=== PATIENT | male | born 1980 | race Caucasian/White ===

== ENCOUNTER 2021-05-29 15:21 | Emergency (ER) | payer SELFPAY ==
[~2021-05-29] VITALS: Ht 175.3 cm; Wt 82.3 kg
[2021-05-29 16:37] LABS: BILIRUBIN,URINE NEGATIVE (NEG); CLARITY,URINE CLEAR; COLOR,URINE DK YELLOW
[2021-05-29 16:38] LABS: NITRITE,URINE NEGATIVE (NEG); PROTEIN,URINE NEGATIVE (NEG-TRACE)
[2021-05-29 16:41] LABS: BACTERIA,URINE 0 /HPF (0-FEW); RBC,URINE 0 /HPF (0-2)
--- NOTE | 2021-05-29 17:12 | RAD ---
CT abdomen and pelvis without contrast: Reason for examination: Right flank pain. Helical images were obtained through the abdomen and pelvis with no intravenous or oral contrast admi nistered. Reconstruction was performed in sagittal and coronal planes. Exposure: One or more of the following individualized dose reduction techniques were utilized for thi s examination: 1. Automated exposure control 2. Adjustment of the mA and/or kV according to patient size 3. Use of iterative reconstruction technique. No infiltrates or pleural effusions are seen. The heart size is normal with no pericardial effusion. No abnormalities of seen at the liver, spleen, adrenal glands, gallbladder or pancreas. The kidneys s how no renal masses, calculi, hydronephrosis or evidence of obstructive uropathy. The abdominal aorta and inferior vena cava show no acute abnormalities. The colon appears to contain a moderate amount o f fecal material with no diverticulosis, diverticulitis or colitis. No abnormality is seen at the layla endix. The small intestinal tract shows no abnormal dilatation, wall thickening or apparent obstructi on. No abnormality is seen at the stomach or duodenum. No abnormality seen at the bladder, prostate gland or seminal vesicles. No free fluid or free air is seen in the abdomen or pelvis. No acute bony abnormalities are seen. IMPRESSION: No renal calculi or evidence of obstructive uropathy. No acute abnormality evident in the abdomen or pelvis. Electronically signed by: Jemima Lauren MD (05/29/2021 5:10 PM) SYMONE
[2021-05-29 17:22] LABS: BASO % 1 % (0-3); EOS # 0.2 x10^3/uL (0.0-0.7); EOS % 4 % (0-3); HEMATOCRIT 38.4 % (39.0-53.0); HEMOGLOBIN 13.3 g/dL (13.0-17.5); LYMPH # 1.9 x10^3/uL (1.0-4.8); LYMPH % 30 % (24-48); MEAN CORPUSCULAR HEMOGLOBIN 31 pg (25-35); MEAN CORPUSCULAR HGB CONC 35 g/dL (31-37); MEAN CORPUSCULAR VOLUME 90 fL (79-100); MONO # 0.3 x10^3/uL (0.0-1.1); MONO % 5 % (0-9); NEUT # 3.8 x10^3/uL (1.8-7.7); NEUT % 60 % (31-73); PLATELET COUNT 238 x10^3/uL (140-400); RED BLOOD COUNT 4.25 x10^6/uL (4.30-5.70); RED CELL DISTRIBUTION WIDTH 13.6 % (11.5-14.5); WHITE BLOOD COUNT 6.3 x10^3/uL (4.0-11.0)
[2021-05-29 17:29] LABS: CALCIUM 8.7 mg/dL (8.5-10.1); CREATININE 0.9 mg/dL (0.7-1.3); GFR 94.4; POTASSIUM 4.3 mmol/L (3.5-5.1)
[2021-05-29 17:35] LABS: ALBUMIN 3.7 g/dL (3.4-5.0); ALBUMIN/GLOBULIN RATIO 1.1 (1.0-1.7); TOTAL BILIRUBIN 0.2 mg/dL (0.2-1.0)
[2021-05-29] MEDS ORDERED: IV NORMAL SALINE 1000ML BAG 1,000 ML IV ONE (18:15)
[2021-05-29] MEDS ORDERED: ORPHENADRINE CITRATE 60 MG/2 ML VIAL. IM ONE (18:45)
[2021-05-29] MEDS ORDERED: KETOROLAC 15 MG/ML VIAL. IVP ONE (18:45)
[2021-05-29] MEDS ORDERED: NAPR-677 PO (19:52)
[2021-05-29] MEDS ORDERED: CYCL10TA2 PO (19:52)
--- NOTE | 2021-05-29 19:53 | ED.ADGEN ---
Past Medical History Additional Past Medical Histor: "kidney failure - per patient", narrow urethra Past Surgical History: Other Additional Past Surgical Histo: urethra General Adult EDM: Chief Complaint: FLANK PAIN HPI: HPI: Patient is a 40 year old male who presents to the emergency department via [facility] with complaints of right flank pain that radiates to his right lower quadrant that began this morning. Patient states about a week ago he had similar pain. He reports a history of previous kidney stones and a narrow urethra. Patient states in the past he has had kidney failure because of these problems. He denies any fever, nausea, vomiting, diarrhea, cough, shortness of breath, fever, body aches, headache, dysuria, hematuria, or difficulty voiding. Currently rates his pain a 7 out of 10 on the pain scale, he denies any alleviating factors. Patient denies any known exposure to COVID-19, he has not been immunized against the illness. Patient states that he has noticed that the back pain is worse with palpation and movement, he denies any radiation of the pain to his right leg. Review of Systems: Review of Systems: Complete ROS is negative unless otherwise noted in HPI. Current Medications: Current Medications Medications (Trade) Dose Ordered Sig/Diony Start Time Stop Time Status Last Admin Dose Admin Ketorolac Tromethamine (Toradol 15mg Vial) 15 mg 1X ONCE 05/29/21 18:45 05/29/21 18:46 DC 05/29/21 19:20 15 MG Orphenadrine Citrate (Norflex) 60 mg 1X ONCE 05/29/21 18:45 05/29/21 18:46 DC 05/29/21 19:19 60 MG Sodium Chloride 1,000 ml @ 1,000 mls/hr 1X ONCE 05/29/21 18:15 05/29/21 19:14 DC 05/29/21 18:25 1,000 MLS/HR Allergies: Allergies: Allergies Coded Allergies Type Severity Reaction Last Updated Verified No Known Drug Allergies 05/29/21 No Physical Exam: PE: See Above Constitutional: Well developed, well nourished, no acute distress, non-toxic appearance. [] HENT: Normocephalic, atraumatic, bilateral external ears normal, nose normal. [] Eyes: PERRLA, EOMI, conjunctiva normal, no discharge. [] Neck: Normal range of motion, no stridor. [] Cardiovascular:Heart rate regular rhythm Lungs & Thorax: Respirations even and unlabored, no retractions, no respiratory distress Abdomen: soft, no tenderness,, no palpable mass, no pulsatile mass Back: No bony tenderness, right lumbar paraspinal tenderness to palpation, negative straight leg lift bilaterally Skin: Warm, dry, no erythema, no rash. [] Extremities: No cyanosis, ROM intact, no edema. [] Neurologic: Alert and oriented X 3, normal motor, normal sensory, no focal deficits noted. [] Psychologic: Affect normal, judgement normal, mood normal. [] Current Patient Data: Labs: Laboratory Tests Test 05/29/21 15:42 05/29/21 17:15 Urine Collection Type Unknown Urine Color Dk yellow Urine Clarity Clear Urine pH 5.0 (<5.0-8.0) Urine Specific [place] >=1.030 (1.000-1.030) Urine Protein Negative mg/dL (NEG-TRACE) Urine Glucose (UA) Negative mg/dL (NEG) Urine Ketones (Stick) Negative mg/dL (NEG) Urine Blood Negative (NEG) Urine Nitrite Negative (NEG) Urine Bilirubin Negative (NEG) Urine Urobilinogen Dipstick 1.0 mg/dL (0.2 mg/dL) Urine Leukocyte Esterase Negative (NEG) Urine RBC 0 /HPF (0-2) Urine WBC 1-4 /HPF (0-4) Urine Squamous Epithelial Cells Few /LPF Urine Bacteria 0 /HPF (0-FEW) Urine Mucus Marked /LPF White Blood Count 6.3 x10^3/uL (4.0-11.0) Red Blood Count 4.25 x10^6/uL (4.30-5.70) L Hemoglobin 13.3 g/dL (13.0-17.5) Hematocrit 38.4 % (39.0-53.0) L Mean Corpuscular Volume 90 fL (79-100) Mean Corpuscular Hemoglobin 31 pg (25-35) Mean Corpuscular Hemoglobin Concent 35 g/dL (31-37) Red Cell Distribution Width 13.6 % (11.5-14.5) Platelet Count 238 x10^3/uL (140-400) Neutrophils (%) (Auto) 60 % (31-73) Lymphocytes (%) (Auto) 30 % (24-48) Monocytes (%) (Auto) 5 % (0-9) Eosinophils (%) (Auto) 4 % (0-3) H Basophils (%) (Auto) 1 % (0-3) Neutrophils # (Auto) 3.8 x10^3/uL (1.8-7.7) Lymphocytes # (Auto) 1.9 x10^3/uL (1.0-4.8) Monocytes # (Auto) 0.3 x10^3/uL (0.0-1.1) Eosinophils # (Auto) 0.2 x10^3/uL (0.0-0.7) Basophils # (Auto) 0.0 x10^3/uL (0.0-0.2) Sodium Level 141 mmol/L (136-145) Potassium Level 4.3 mmol/L (3.5-5.1) Chloride Level 105 mmol/L (98-107) Carbon Dioxide Level 31 mmol/L (21-32) Anion Gap 5 (6-14) L Blood Urea Nitrogen 12 mg/dL (8-26) Creatinine 0.9 mg/dL (0.7-1.3) Estimated GFR (Cockcroft-Gault) 94.4 BUN/Creatinine Ratio 13 (6-20) Glucose Level 95 mg/dL (70-99) Calcium Level 8.7 mg/dL (8.5-10.1) Total Bilirubin 0.2 mg/dL (0.2-1.0) Aspartate Amino Transferase (AST) 18 U/L (15-37) Alanine Aminotransferase (ALT) 30 U/L (16-63) Alkaline Phosphatase 77 U/L (46-116) Total Protein 7.0 g/dL (6.4-8.2) Albumin 3.7 g/dL (3.4-5.0) Albumin/Globulin Ratio 1.1 (1.0-1.7) Laboratory Tests 05/29/21 17:15 Laboratory Tests 05/29/21 17:15 Vital Signs: Vital Signs Date Time Temp Pulse Resp B/P (MAP) Pulse Ox O2 Delivery O2 Flow Rate FiO2 05/29/21 20:45 68 110/61 (77) 98 Room Air 05/29/21 15:25 98.1 18 98.1 EKG: EKG: [] Heart Score: C/O Chest Pain: No Radiology/Procedures: Radiology/Procedures: PROCEDURE: CT ABDOMEN PELVIS WO CONTRAST CT abdomen and pelvis without contrast: Reason for examination: Right flank pain. Helical images were obtained through the abdomen and pelvis with no intravenous or oral contrast administered. Reconstruction was performed in sagittal and deyanira nal planes. Exposure: One or more of the following individualized dose reduction techniques were utilized for this examination: 1. Automated exposure control 2. Adjustment of the mA and/or kV according to patient size 3. Use of iterative reconstruction technique. No infiltrates or pleural effusions are seen. The heart size is normal with no pericardial effusion. No abnormalities of seen at the liver, spleen, adrenal glands, gallbladder or pancreas. The kidneys show no renal masses, calculi, hydronephrosis or evidence of obstructive uropathy. The abdominal aorta and inferior vena cava show no acute abnormalities. The colon appears to contain a moderate amount of fecal material with no diverticulosis, diverticulitis or colitis. No abnormality is seen at the appendix. The small intestinal tract shows no abnormal dilatation, wall thickening or apparent obstruction. No abnormality is seen at the stomach or duodenum. No abnormality seen at the bladder, prostate gland or seminal vesicles. No free fluid or free air is seen in the abdomen or pelvis. No acute bony abnormalities are seen. IMPRESSION: No renal calculi or evidence of obstructive uropathy. No acute abnormality evident in the abdomen or pelvis. [] Course & Med Decision Making: Course & Med Decision Making Pertinent Labs and Imaging studies reviewed. (See chart for details) 32-year-old male presents emergency department with complaints of right flank and leg abdominal pain. CT abdomen pelvis was unremarkable, UA is unremarkable CBC did not reveal any acute findings, CMP is also unremarkable; UA is not concerning for urinary tract infection. The patient was given a liter of normal saline, 15 mg of IV Toradol and 60 mg of IM Norflex, he reported feeling better after these medications. Vital signs are stable in the emergency department. Prescriptions written for Flexeril and naproxen, encouraged the patient to follow-up with his primary care doctor for further evaluation, return to the ER if symptoms worsen or fever develop. Patient verbalized an understanding of home care, medications, follow-up, and return to ED instructions and was in agreement with the plan of care. [] Dragon Disclaimer: Dragon Disclaimer: This electronic medical record was generated, in whole or in part, using a voice recognition dictation system. Departure Departure Impression: Primary Impression: Acute right flank pain Additional Impression: Strain of flank Disposition: HOME / SELF CARE / HOMELESS Condition: STABLE Referrals: NO PCP (PCP) Patient Instructions: Flank Pain, [id number], Muscle Strain, [id number] Additional Instructions: Fill the prescriptions and use as directed. Apply ice or heat as needed for comfort. Activity as tolerated. Follow up with your primary care doctor in 1-2 days, return to the ER if symptoms worsen or if fever develops. Scripts Naproxen Sodium (NAPROXEN SODIUM) 550 Mg Tablet 1 TAB PO BID for pain for 10 Days, #20 TAB 0 Refills Prov: KT TOVAR APRN 05/29/21 Cyclobenzaprine Hcl (CYCLOBENZAPRINE HCL) 10 Mg Tablet 1 TAB PO TID PRN for MUSCLE PAIN for 10 Days, #30 TAB 0 Refills Prov: KT TOVAR APRN 05/29/21 Problem Qualifiers Additional Impression: Strain of flank Encounter type: initial encounter Qualified Codes: S39.011A - Strain of muscle, fascia and tendon of abdomen, initial encounter KT TOVAR AUDIT SPECIALIST May 29, 2021 19:53
[2021-05-29 20:45] VITALS: BP 110/61
== END 2021-05-29 20:45 | disposition home or self-care (01) ==
LOC: ER 15:21
DX: S39.011A Strain of muscle, fascia and tendon of abdomen, initial encounter (principal); X58.XXXA Exposure to other specified factors, initial encounter; Y93.89 Activity, other specified; Y92.89 Other specified places as the place of occurrence of the external cause; Y99.8 Other external cause status
CPT/HCPCS: 36415; 74176; 80053; 81001; 85025; 96361; 96372; 96374; 99285; J1885; J2360; J7030; 99284-25